=== PATIENT | male | born 1960 ===

== ENCOUNTER 2025-10-30 07:00 | Day surgery (SDC) | payer OTHER ==
[2025-10-24 10:20] VITALS: BP 145/84
[~2025-10-30] VITALS: Ht 177.8 cm; Wt 106.6 kg
[~2025-10-30 07:00] MED LIST: PRILOSEC OTC20 MG PO
[2025-10-30] MEDS ORDERED: GLUCAGON 1 MG VIAL ONE (07:24)
[2025-10-30] MEDS ORDERED: IOVERSOL 320 MG/ML - 50 ML VIAL IV ONE (11:42)
== END 2025-10-30 14:40 | disposition home or self-care (01) ==
LOC: CIR.AMB 07:00
PROVIDERS: ATTEND Internal Medicine
DX: K86.2 Cyst of pancreas (principal); K76.0 Fatty (change of) liver, not elsewhere classified